=== PATIENT | female | born 1980 | race Caucasian/White ===

== ENCOUNTER → 2020-06-10 | Outpatient (CLI) | payer BC ==
[2006-01-28 07:25] VITALS: PULSE 82; TEMP 98.4
[~2020-06-10] MED LIST: MULTI VITAMINS1 TAB PO; NORCO 325 MG-7.1 TAB PO; PERCOCET 325 MG1 TA2 PO
== END ==
LOC: MC.RAD 11:24
DX: Z12.31 Encounter for screening mammogram for malignant neoplasm of breast (principal); Z98.82 Breast implant status

== ENCOUNTER 2020-07-29 10:06 | Emergency (ER) | payer BC ==
[~2020-07-29] VITALS: Ht 162.6 cm; Wt 63.6 kg
[2020-07-29 10:14] VITALS: TEMP 97.9
[2020-07-29 10:46] LABS: BASO % 0.3 % (0.0-2.0); EOS % 0.2 % (0-4.0); GRAN # 3.9 (1.4-6.5); GRAN % 61.7 % (42.2-75.2); HEMATOCRIT 39.3 % (37.0-47.0); LYMPH % 31.4 % (20.0-51.0); MEAN CELL VOLUME 93 fl (80.0-100.0); MEAN CORPUSCULAR HEMOGLOBIN 33 pg (27.0-31.0); MEAN CORPUSCULAR HGB CONC 36 g/dl (33.0-37.0); MEAN PLATELET VOLUME 9.1 fl (7.4-10.4); MONO # 0.4 (0.1-0.6); MONO % 6.1 % (1.7-9.3); PLATELET COUNT 340 K/mm3 (130-400); RED BLOOD COUNT 4.22 M/mm3 (4.10-5.30); REDCELL DISTRIBUTION WIDTH-CV 11.7 % (11.5-14.5)
[2020-07-29 11:08] LABS: ALANINE AMINOTRANSFERASE 28 U/L (4-34); ALBUMIN 4.6 gm/dL (3.5-5.0); ALKALINE PHOSPHATASE 60 U/L (50-136); ANION GAP 8 mmol/L (7-16); AST,SGOT 40 U/L (15-37); BLOOD UREA NITROGEN 13 mg/dL (7-17); CALCIUM 9.1 mg/dL (8.4-10.2); CARBON DIOXIDE 25 mmol/L (22-30); CHLORIDE 101 mmol/L (98-107); CREATININE, serum 0.72 (0.52-1.25); GLUCOSE 103 mg/dL (74-106); SODIUM 134 mmol/L (137-145); TOTAL PROTEIN 7.7 gm/dL (6.4-8.2)
[2020-07-29 11:13] LABS: C-REACTIVE PROTEIN < 0.5 mg/dL (0.0-0.9)
[2020-07-29 11:24] LABS: COLLECTION METHOD CLEAN CATCH
[2020-07-29 11:45] LABS: PH 6 (5-8); SQUAMOUS EPITHELIAL None Seen /hpf; URINE APPEARANCE Clear; URINE BACTERIA Rare /hpf; URINE BILIRUBIN Negative (NEGATIVE); URINE BLOOD Negative (NEGATIVE); URINE COLOR Yellow; URINE GLUCOSE Negative (NEGATIVE); URINE KETONE Negative (NEGATIVE); URINE LEUKOCYTE ESTERASE Negative (NEGATIVE); URINE NITRATE Negative (NEGATIVE); URINE PROTEIN(semi-quant) Negative (NEGATIVE); URINE RBC None Seen /hpf; URINE UROBILINOGEN Negative (NEGATIVE)
[2020-07-29] MEDS ORDERED: PHENERGAN 25 TA25 MG PO (12:27)
[2020-07-29 12:48] VITALS: BP 128/86; PULSE 84
== END 2020-07-29 12:55 | disposition home or self-care (01) ==
LOC: COL.ER 10:06
PROVIDERS: Nurse Practitioner Primary Care
DX: B34.9 Viral infection, unspecified (principal); F17.210 Nicotine dependence, cigarettes, uncomplicated; Z20.828 Contact with and (suspected) exposure to other viral communicable diseases; Z90.49 Acquired absence of other specified parts of digestive tract
CPT/HCPCS: J2405; J2550; J7030

== ENCOUNTER 2020-08-05 12:06 | Emergency (ER) | payer BC ==
[~2020-08-05] VITALS: Ht 162.6 cm; Wt 67.3 kg
[~2020-08-05 12:06] MED LIST changes: +PHENERGAN 25 TA25 MG PO
[2020-08-05 12:12] VITALS: TEMP 97.7
[2020-08-05] MEDS ORDERED: PREDNISONE20 MG PO (18:03)
[2020-08-05 18:05] VITALS: BP 142/85; PULSE 79
== END 2020-08-05 18:05 | disposition home or self-care (01) ==
LOC: COL.ER 12:06
DX: T78.3XXA Angioneurotic edema, initial encounter (principal); T46.4X5A Adverse effect of angiotensin-converting-enzyme inhibitors, initial encounter
CPT/HCPCS: J1200; J2930

== ENCOUNTER 2021-01-23 16:39 | Emergency (ER) | payer BC ==
[~2021-01-23] VITALS: Ht 162.6 cm; Wt 68.2 kg
[~2021-01-23 16:39] MED LIST changes: +PREDNISONE20 MG PO
[2021-01-23] MEDS ORDERED: TOPROL XL 50MG50 MG PO (18:06)
[2021-01-23] MEDS ORDERED: HCTZ 25MG TAB25 MG PO (18:07)
[2021-01-23 19:18] VITALS: BP 118/64; PULSE 84; TEMP 97.8
== END 2021-01-23 19:18 | disposition home or self-care (01) ==
LOC: COL.ER 16:39
DX: S93.401A Sprain of unspecified ligament of right ankle, initial encounter (principal); Z87.891 Personal history of nicotine dependence; X50.1XXA Overexertion from prolonged static or awkward postures, initial encounter; Y93.01 Activity, walking, marching and hiking
CPT/HCPCS: J1885